=== PATIENT | female | born 1945 | race Caucasian/White ===

== ENCOUNTER 2018-03-07 08:32 | Emergency (ER) | payer MEDICARE ==
[2018-03-07] MEDS ORDERED: Ondansetron ODT 8 MG TAB ONE (08:46)
--- NOTE | 2018-03-07 09:35 | CT ---
CT HEAD NONCONTRAST: HISTORY: Fall. Head injury. COMPARISON: 04/06/07. FINDINGS: There is no evidence of acute intracranial hemorrhage or infarct. Ventricles appear normal in size, shape, and position. There is no mass effect or shift of midline structures. Mild chronic ischemic small-vessel disease within the periventricular white matter has progressed. IMPRESSION: No acute intracranial abnormalities are demonstrated. POS: [facility]
== END 2018-03-07 09:56 | disposition home or self-care (01) ==
LOC: ERS 08:32
DX: S09.90XA Unspecified injury of head, initial encounter (principal); F07.81 Postconcussional syndrome; E03.9 Hypothyroidism, unspecified; E78.5 Hyperlipidemia, unspecified; I10 Essential (primary) hypertension; W18.30XA Fall on same level, unspecified, initial encounter
CPT/HCPCS: 70450

== ENCOUNTER 2018-09-19 15:17 | Emergency (ER) | payer MEDICARE ==
[2018-09-19] MEDS ORDERED: Ketorolac Tromethamine 30 MG/ML VIAL ONE (16:06)
--- NOTE | 2018-09-19 16:37 | RAD ---
AP PELVIS: 09/19/18 HISTORY: Right hip pain and pelvic pain. The bones appear demineralized. There are very mild arthritic changes of both hips. There is marked a rthritic changes in the lower lumbar spine. There is no signs of any fractures. IMPRESSION: Mild arthritic changes of the hips. POS: [facility]
--- NOTE | 2018-09-19 16:38 | RAD ---
RIGHT HIP TWO VIEWS: 09/19/18 HISTORY: Hip pain. There is minimal arthritic changes of the hip. The bones appear demineralized. There is no signs of a ny acute fracture. IMPRESSION: Minimal arthritic changes of the hip. POS: [facility]
== END 2018-09-19 16:55 | disposition home or self-care (01) ==
LOC: ERS 15:17
DX: M54.31 Sciatica, right side (principal); E03.9 Hypothyroidism, unspecified; E78.2 Mixed hyperlipidemia; I10 Essential (primary) hypertension; Z79.899 Other long term (current) drug therapy; Z79.82 Long term (current) use of aspirin
CPT/HCPCS: 72170; 96374; J1885

== ENCOUNTER 2018-10-27 13:43 | Outpatient (CLI) | payer MEDICARE ==
--- NOTE | 2018-10-27 16:26 | BD ---
Exam: DEXA Bone Density 10/27/18 HISTORY: 73-year-old female with age related osteoporosis with current pathologic fracture, unspecified site. Patient is postmenopausal. FINDINGS: Lumbar Spine: BMD (g/cm2) T-Score: L1 0.937 -0.5 L2 1.093 +0.6 L3 0.972 -1.0 L4 1.184 1.1 L1-L4 1.054 +0.1 Within normal limits with no increased risks for fracture. Left Femoral: Femoral neck: 0.584 -2.4 Total Femur: 0.779 -1.3 Evidence for osteopenia with increased risk for fracture. FRAX score not reported because of prior hi p or vertebral fracture. POS: [facility]
== END 2018-10-27 13:44 | disposition home or self-care (01) ==
LOC: BICMAMMO 13:43
PROVIDERS: ATTEND Internal Medicine Rheumatology
DX: M80.00XS Age-related osteoporosis with current pathological fracture, unspecified site, sequela (principal); M85.859 Other specified disorders of bone density and structure, unspecified thigh
CPT/HCPCS: 77080

== ENCOUNTER 2019-06-20 10:15 | Emergency (ER) | payer MEDICARE ==
[2019-06-20] MEDS ORDERED: Lorazepam 2 MG/ML VIAL ONE (11:22)
[2019-06-20] MEDS ORDERED: Ketorolac Tromethamine 30 MG/ML VIAL ONE (11:22)
[2019-06-20] MEDS ORDERED: Fentanyl 100 MCG/2 ML VIAL ONE (11:22)
[2019-06-20] MEDS ORDERED: Dexamethasone 10 MG/ML VIAL ONE (11:25)
--- NOTE | 2019-06-20 11:32 | CT ---
EXAM: CT Lumbar Spine WO Con PROVIDED CLINICAL HISTORY: Back pain COMPARISON: MRI 03/18/2019 FINDINGS: Lumbar alignment is unchanged. Advanced multilevel lumbar disc and facet degenerative changes are red emonstrated, similar to the prior examination. Vertebral body heights are preserved. There is no evidence for fracture or other acute osseous abnormality. Multilevel central canal and foraminal narr owing demonstrate no significant interval change. Vascular calcifications are seen. Metallic densities are noted associated with the right sacral ala. The visualized extraspinal soft tissues tayo ear otherwise unremarkable. IMPRESSION: No evidence for fracture.
[2019-06-20 11:36] LABS: #Eosinphils 0.2 thou/uL (0.0-0.7); #Lymphocytes 1.3 thou/uL (1.20-3.40); #Monocytes 0.4 thou/uL (0.11-0.59); #Neutrophils 3.9 thou/uL (1.40-6.50); %Basophils 0.6 % (0.0-1.0); %Eosinophils 3.6 % (0.0-10.0); %Lymphocytes 21.5 % (21.0-51.0); %Monocytes 7.5 % (0.0-10.0); %Neutrophils 66.8 % (42.0-75.0); Hemoglobin 13.1 g/dL (12.0-16.0); Mean Corpuscular HGB CONC 33.6 g/dL (32.0-36.0); Mean Corpuscular Hemoglobin 30.7 pg (27.0-31.0); Mean Corpuscular Volume 91.4 fL (78.0-98.0); Mean Platelet Volume 10.6 fL (7.4-10.4); Platelet Count 150 thou/uL (130-400); RBC Distribution Width 12.6 % (11.5-14.5); Red Blood Cell (RBC) Count 4.26 mill/uL (4.20-5.40); White Blood Cell (WBC) Count 5.9 thou/uL (4.8-10.8)
[2019-06-20 11:55] LABS: ALT (SGPT) 16 U/L (8-55); AST (SGOT) 22 U/L (5-34); Alkaline Phosphatase 89 U/L (40-150); Anion Gap 9 mmol/L (10-20); BUN (Urea Nitrogen) 18 mg/dL (9.8-20.1); Bilirubin, Total 0.5 mg/dL (0.2-1.2); Calc. Creatinine Clearance 0 mL/min (70-130); Calcium 9.5 mg/dL (7.8-10.44); Carbon Dioxide 31 mmol/L (23-31); Chloride 103 mmol/L (98-107); Estimated GFR-MDRD 71; Globulin 2.5 g/dL (2.4-3.5); Glucose 109 mg/dL (83-110); Potassium 3.9 mmol/L (3.5-5.1); Protein, Total 6.5 g/dL (6.0-8.3); Sodium 139 mmol/L (136-145)
== END 2019-06-20 12:50 | disposition home or self-care (01) ==
LOC: ERS 10:15
DX: M54.41 Lumbago with sciatica, right side (principal); E03.9 Hypothyroidism, unspecified; E78.5 Hyperlipidemia, unspecified; I10 Essential (primary) hypertension; Z79.899 Other long term (current) drug therapy
CPT/HCPCS: 36415; 72131; 80053; 85025; 85652; 86140; 96361; 96374; 96375; J1100; J1885; J2060; J3010

== ENCOUNTER 2019-07-01 06:42 | Day surgery (SDC) | payer MEDICARE ==
[2019-06-30 11:50] VITALS: BMI 31.9
[2019-07-01] MEDS ORDERED: Morphine 4 MG/ML VIAL ONE (08:42)
[2019-07-01 09:04] LABS: #Basophils 0.1 thou/uL (0.0-0.2); #Eosinphils 0.2 thou/uL (0.0-0.7); #Lymphocytes 1.6 thou/uL (1.20-3.40); #Monocytes 0.6 thou/uL (0.11-0.59); #Neutrophils 6.2 thou/uL (1.40-6.50); %Basophils 0.8 % (0.0-1.0); %Eosinophils 2.7 % (0.0-10.0); %Lymphocytes 18.5 % (21.0-51.0); %Monocytes 6.9 % (0.0-10.0); %Neutrophils 71.1 % (42.0-75.0); Hemoglobin 14.5 g/dL (12.0-16.0); Mean Corpuscular HGB CONC 33.1 g/dL (32.0-36.0); Mean Corpuscular Volume 90.5 fL (78.0-98.0); Platelet Count 167 thou/uL (130-400); RBC Distribution Width 12.5 % (11.5-14.5); Red Blood Cell (RBC) Count 4.82 mill/uL (4.20-5.40); White Blood Cell (WBC) Count 8.7 thou/uL (4.8-10.8)
[2019-07-01 09:07] LABS: INR-International Normal Ratio 1.2; Prothrombin Time 14.8 SEC (12.0-14.7)
[2019-07-01] MEDS ORDERED: Thrombin 5000 UNITS/5 ML VIAL ONE ×2 (09:14→13:43)
[2019-07-01] MEDS ORDERED: Sodium Chloride 0.9% 10 ML ONE (09:14)
[2019-07-01 09:20] LABS: Anion Gap 15 mmol/L (10-20); BUN (Urea Nitrogen) 18 mg/dL (9.8-20.1); Calc. Creatinine Clearance 97 mL/min (70-130); Calcium 9.6 mg/dL (7.8-10.44); Carbon Dioxide 26 mmol/L (23-31); Chloride 103 mmol/L (98-107); Estimated GFR-MDRD 71; Glucose 87 mg/dL (83-110); Potassium 4.1 mmol/L (3.5-5.1); Sodium 140 mmol/L (136-145)
[2019-07-01] MEDS ORDERED: Metoclopramide HCl 10 MG/2 ML VIAL ONE (10:18)
[2019-07-01] MEDS ORDERED: Ketorolac Tromethamine 30 MG/ML VIAL ONE (10:18)
[2019-07-01] MEDS ORDERED: Rocuronium Bromide 10 MG/ML (10ML VIAL) ONE (10:18)
[2019-07-01] MEDS ORDERED: ePHEDrine 50 MG/ML VIAL ONE (10:18)
[2019-07-01] MEDS ORDERED: PROPOFOL 200 MG/20 ML VIAL ONE (10:18)
[2019-07-01] MEDS ORDERED: Dexamethasone 20 MG/5 ML VIAL ONE (10:18)
[2019-07-01] MEDS ORDERED: Lidocaine 1% PF 5 ML VIAL ONE (10:18)
[2019-07-01] MEDS ORDERED: Ondansetron PF 4 MG/2 ML Vial ONE (10:18)
[2019-07-01] MEDS ORDERED: Fentanyl 100 MCG/2 ML VIAL ONE ×3 (10:45→15:24)
[2019-07-01] MEDS ORDERED: Famotidine/PF 20 mg/2ml Vial ONE (10:46)
[2019-07-01] MEDS ORDERED: Fleet Enema 133 ML BOT PR PRN (14:32)
[2019-07-01] MEDS ORDERED: Bisacodyl 10 MG SUPP PR PRN (14:32)
[2019-07-01] MEDS ORDERED: Ondansetron PF 4 MG/2 ML Vial IVP PRN (14:32)
[2019-07-01] MEDS ORDERED: Mag-Al 1200 mg/1200 mg/30 ML UDCUP PO PRN (14:32)
[2019-07-01] MEDS ORDERED: Acetaminophen/Codeine 30-300mg Tablet PO PRN (14:32)
[2019-07-01] MEDS ORDERED: Morphine 2 MG/ML SYRINGE SLOW IVP PRN (14:32)
[2019-07-01] MEDS ORDERED: Milk Of Magnesia 30 ML UDCUP PO PRN (14:32)
[2019-07-01] MEDS ORDERED: Acetaminophen 325 MG TAB PO PRN (14:32)
[2019-07-01] MEDS ORDERED: traMADol HCl 50 MG TAB PO PRN (14:32)
[2019-07-01] MEDS ORDERED: Ondansetron HCl/PF 4 MG/2 ML Vial IVP PRN (15:00)
--- NOTE | 2019-07-01 15:21 | OP ---
DATE OF PROCEDURE: 07/01/2019 [employer] DRAFTSPERSON: Italo Manrique PA-C PREPROCEDURE DIAGNOSES: L3 through L5 stenosis with spondylolisthesis with far lateral right L3-L4 disk extrusion. POSTPROCEDURE DIAGNOSES: L3 through L5 stenosis with spondylolisthesis with far lateral right L3-L4 disk extrusion. PROCEDURES PERFORMED: 1. L3-L4 and L4-L5 laminectomies, partial facetectomies, and foraminotomies. 2. L3-L4 in-situ fusion with local bone autograft obtained from same incision and allograft. 3. Right L3-L4 transfacet approach for diskectomy lateral far-lateral with decompression of the exiting right L3 nerve root. 4. Use of operative microscope for microdissection. DESCRIPTION OF PROCEDURE: After informed consent was obtained from the patient, she was brought to the OR. Proper patient, pause, and identification were carried out. The wound was then opened with a combination of sharp, monopolar, and blunt dissection. After proper patient, pause, and identification, in the L3 through L5 region, an incision had been drawn. This area had been sterilely cleansed, prepared, and draped. Proper patient, pause, and identification were carried out. The wound was then opened with a combination of sharp, monopolar, and blunt dissection. The L3, L4, and L5 segments were exposed. Localization film confirmed our area of interest. We then performed L3, L4, and L5 laminectomies, partial facetectomies, foraminotomies, excellent decompression of the common dural tube. We then turned our attention to in-situ fusion with decortication of posterolateral regions at L3-L4. I did the left side first and left the right side because I then brought the microscope in and did a right L3-L4 transfacet approach for a lateral far-lateral diskectomy. Complete decompression of the exiting right L3 nerve root. We then decorticated the right posterior lateral regions for arthrodesis. Local bone autograft obtained in the same incision of allograft. Copious irrigation occurred throughout as did maximizing hemostasis. The wound was then closed in anatomic layers. We had excellent decompression. There was no spinal fluid leak. The wound was then maximally hemostasis and closed in anatomic layers. Job ID: [id number]
[2019-07-01] MEDS ORDERED: Dexamethasone 6 MG in Sodium Chloride 0.9% 50 ML IVPB SCH (16:45)
[2019-07-01] MEDS ORDERED: CEFAZOLIN 2 GM in Premix Bag 1 BAG IVPB SCH (17:00)
[2019-07-01] MEDS ORDERED: Dexamethasone 4 mg/ml Vial ONE (17:06)
[2019-07-01] MEDS ORDERED: HYDROcodone/Acetaminophen 7.5/325 mg Tablet ONE (17:52)
[2019-07-01] MEDS: Sodium Chloride 0.9% 1,000 ML IV SCH (20:01)
--- NOTE | 2019-07-01 20:38 | EKG ---
Test Reason : PREOP/UP IN [facility] Blood Pressure : / mmHG Vent. Rate : 062 BPM Atrial Rate : 062 BPM P-R Int : 150 ms QRS Dur : 080 ms QT Int : 426 ms P-R-T Axes : 065 046 059 degrees QTc Int : 432 ms Normal sinus rhythm Normal ECG When compared with ECG of 08-MAR-2014 09:24, T wave amplitude has increased in Anterior leads Confirmed by TIMMY DE LA CRUZ, SDarwin ([id number]) on 07/01/2019 8:37:48 PM Referred By: GUERO Confirmed By:DR. Joanna WARNER MD
[2019-07-01] MEDS: CEFAZOLIN 2 GM in Premix Bag 1 BAG IVPB SCH (20:54)
[2019-07-01] MEDS: Simvastatin 40 MG TAB PO SCH (20:55)
[2019-07-01] MEDS: Calcium Carbonate + Vit D 1 TAB PO SCH (20:55)
[2019-07-02] MEDS: HYDROcodone/Acetaminophen 7.5/325 mg Tablet PO PRN ×4 (01:08→17:41)
[2019-07-02] MEDS: Sodium Chloride 0.9% 1,000 ML IV SCH ×2 (02:34→10:42)
[2019-07-02] MEDS: Levothyroxine Sodium 100 MCG TAB PO SCH (05:29)
[2019-07-02] MEDS: CEFAZOLIN 2 GM in Premix Bag 1 BAG IVPB SCH (05:29)
[2019-07-02] MEDS: Citalopram 20 MG TAB PO SCH (09:11)
[2019-07-02] MEDS: tiZANidine HCl 4 MG TAB PO PRN ×2 (09:12→17:41)
[2019-07-02] MEDS: Multivitamin W/ Minerals 1 TAB PO SCH (09:12)
[2019-07-02] MEDS: Hydrochlorothiazide 25 MG TAB PO SCH (09:12)
[2019-07-02] MEDS: Pantoprazole 40 MG VIAL IVP SCH (09:15)
--- NOTE | 2019-07-02 12:28 | PRG ---
DATE OF SERVICE: 07/02/2019 I saw Ms. Renee in her hospital room this morning. She underwent a L3 through L5 laminectomy with complete facetectomy and in situ fusion for significant L3 root compression. The hip flexor weakness she had before surgery is still there, might be improving some, but she is feeling as though she is unsafe for walking. No fevers recorded on her vital signs. Blood pressure and heart rate have been stable. Ms. Renee will need inpatient rehabilitation and I think a transfer could be made at any time. Ms. Renee denies being fitted for a brace and I think with an in situ fusion, it is reasonable idea. We will order one and have that follow her to her rehabilitation facility. Job ID: [id number]
[2019-07-02] MEDS: Calcium Carbonate + Vit D 1 TAB PO SCH (19:29)
[2019-07-02] MEDS: Simvastatin 40 MG TAB PO SCH (19:29)
[2019-07-03] MEDS: Sodium Chloride 0.9% 1,000 ML IV SCH ×2 (06:10→19:38)
[2019-07-03] MEDS: Levothyroxine Sodium 100 MCG TAB PO SCH (06:11)
[2019-07-03] MEDS: HYDROcodone/Acetaminophen 7.5/325 mg Tablet PO PRN ×2 (06:22→16:06)
--- NOTE | 2019-07-03 08:36 | PRG ---
DATE OF SERVICE: 07/03/2019 I saw Aliya Renee in our hospital room this morning. She complains that the anterior side pain came back yesterday. She is now 2-1/2 days out from surgery and from the descriptions of the compressed and purple-red, irritated L3 nerve root on the right side I am not surprised that pain has returned. Ms. Renee has been afebrile. Her blood pressures have been a bit low in the 90s, but she has been asymptomatic from it. I do not find any new motor weakness. I reassured Ms. Renee that 2 to 3 days after decompression of a severely compressed and injured nerve there can be some swelling and return of pain in similar distribution, but it should prove temporary. If we need to start gabapentin, Lyrica or course of steroid medication we can. For now, we will treat her conservatively. She likes the support that the brace offers and I think it is a good idea to continue it. Anticipated inpatient rehabilitation as to discharge. If there is a bed today we will take it if not then on Friday. Job ID: [id number]
[2019-07-03] MEDS: Citalopram 20 MG TAB PO SCH (09:09)
[2019-07-03] MEDS: Multivitamin W/ Minerals 1 TAB PO SCH (09:09)
[2019-07-03] MEDS: Hydrochlorothiazide 25 MG TAB PO SCH (09:09)
[2019-07-03] MEDS: Pantoprazole 40 MG VIAL IVP SCH (09:10)
[2019-07-03] MEDS: Simvastatin 40 MG TAB PO SCH (19:40)
[2019-07-03] MEDS: Calcium Carbonate + Vit D 1 TAB PO SCH (19:40)
[2019-07-03] MEDS: Pregabalin 75 MG CAP PO SCH (19:40)
[2019-07-04] MEDS: Levothyroxine Sodium 100 MCG TAB PO SCH (04:10)
[2019-07-04] MEDS: Citalopram 20 MG TAB PO SCH (08:58)
[2019-07-04] MEDS: HYDROcodone/Acetaminophen 7.5/325 mg Tablet PO PRN ×2 (08:58→13:16)
[2019-07-04] MEDS: Multivitamin W/ Minerals 1 TAB PO SCH (08:59)
[2019-07-04] MEDS: Hydrochlorothiazide 25 MG TAB PO SCH (08:59)
[2019-07-04] MEDS: Pregabalin 75 MG CAP PO SCH (08:59)
[2019-07-04] MEDS: Pantoprazole 40 MG VIAL IVP SCH (08:59)
[2019-07-04] MEDS ORDERED: Polyethylene Glycol 3350 17 GM Packet PO SCH (09:00)
--- NOTE | 2019-07-04 09:08 | PRG ---
DATE OF SERVICE: 07/04/2019 I saw Ms. Renee in her hospital room this morning. She had some burning thigh pain yesterday and Lyrica was started. She tells me she feels a bit better this morning. I do not see any fevers recorded on our electronic charting. Vital signs have been stable. On examination, Ms. Renee has hip flexor weakness on the right and some numbness in what would be an L3 distribution. It has improved. Plan is to move Ms. Renee to inpatient rehabilitation. Transfer was set up for yesterday, but she wanted to delay it one evening and we have been told that she will move today. Arrangements will be made for that, and Dr. Hargrove will follow her up in clinic. Job ID: [id number]
[2019-07-04] MEDS: Sodium Chloride 0.9% 1,000 ML IV SCH (10:03)
[2019-07-04 12:03] VITALS: BP 138/75; TEMP 98.3
== END 2019-07-04 13:56 ==
LOC: SDC 06:42 → UNDOADMOB 18:44 → SURG B 18:44 → SDC 07-04 13:56 → UNDODISOB 07-04 13:56
PROVIDERS: ATTEND Surgery
PROC: 0SG0071 Fusion of Lumbar Vertebral Joint with Autologous Tissue Substitute, Posterior Approach, Posterior Column, Open Approach (ICD-10-PCS; principal; 2019-07-01)
PROC: 0ST20ZZ Resection of Lumbar Vertebral Disc, Open Approach (ICD-10-PCS; 2019-07-01)
PROC: 01NB0ZZ Release Lumbar Nerve, Open Approach (ICD-10-PCS; 2019-07-01)
PROC: 0SG0071 Fusion of Lumbar Vertebral Joint with Autologous Tissue Substitute, Posterior Approach, Posterior Column, Open Approach (ICD-10-PCS; 2019-07-01)
PROC: 01NB0ZZ Release Lumbar Nerve, Open Approach (ICD-10-PCS; 2019-07-01)
DX: M48.061 Spinal stenosis, lumbar region without neurogenic claudication (principal); M43.16 Spondylolisthesis, lumbar region; M54.16 Radiculopathy, lumbar region; I10 Essential (primary) hypertension; E03.9 Hypothyroidism, unspecified; E78.00 Pure hypercholesterolemia, unspecified; E78.5 Hyperlipidemia, unspecified; F32.9 Major depressive disorder, single episode, unspecified; M19.90 Unspecified osteoarthritis, unspecified site; Z79.82 Long term (current) use of aspirin; Z79.899 Other long term (current) drug therapy; Z87.891 Personal history of nicotine dependence
CPT/HCPCS: 36415; 76000; 80048; 85025; 85610; 85730; 93005; 93010; C9113; J0131; J0690; J1100; J1885; J2001; J2270; J2405; J2704; J2765; J3010; J3370; J3490; S0028

== ENCOUNTER 2022-04-24 12:41 | Outpatient (CLI) | payer MEDICARE, BC | END 2022-04-24 12:42 | disposition home or self-care (01) | LOC: BICMAMMO 12:41 | PROVIDERS: ATTEND Surgery | DX: M43.16 Spondylolisthesis, lumbar region (principal); M47.816 Spondylosis without myelopathy or radiculopathy, lumbar region; M47.817 Spondylosis without myelopathy or radiculopathy, lumbosacral region; Z98.890 Other specified postprocedural states; Z78.0 Asymptomatic menopausal state | CPT/HCPCS: 72131; 77080 ==

== ENCOUNTER 2022-06-20 06:03 | Inpatient (IN) | payer MEDICARE, BC ==
[2022-06-17 09:56] LABS: Hemoglobin 12.5 g/dL (12.0-15.5); Mean Corpuscular HGB CONC 33.3 g/dL (32.0-36.0); Mean Corpuscular Hemoglobin 30.6 pg (27.0-33.0); Mean Corpuscular Volume 91.7 fl (81.6-98.3); Mean Platelet Volume 13.1 fl (7.4-10.4); Platelet Count 133 10x3/uL (150-450); Red Blood Cell (RBC) Count 4.09 10x6/uL (3.90-5.03); White Blood Cell (WBC) Count 5.6 10x3/uL (3.5-10.5)
[2022-06-17 10:09] LABS: Anion Gap 16 mmol/L (10-20); BUN (Urea Nitrogen) 18 mg/dL (9.8-20.1); Calc. Creatinine Clearance 0 mL/min (70-130); Calcium 9.6 mg/dL (7.8-10.44); Carbon Dioxide 24 mmol/L (23-31); Chloride 104 mmol/L (98-107); Estimated GFR 69; Glucose 120 mg/dL (83-110); Potassium 4.1 mmol/L (3.5-5.1); Sodium 140 mmol/L (136-145)
[2022-06-17 10:43] LABS: INR-International Normal Ratio 1.1; Prothrombin Time 12.1 sec (9.5-12.1)
[2022-06-19 14:52] VITALS: BMI 29.6
[2022-06-20] MEDS ORDERED: Vecuronium 10 MG VIAL ONE (07:06)
[2022-06-20] MEDS ORDERED: fentaNYL Citrate/PF 100 MCG/2 ML SYRINGE ONE ×2 (07:06→12:18)
[2022-06-20] MEDS ORDERED: Albumin 5% 0 ML ONE (07:06)
[2022-06-20] MEDS ORDERED: Dexmedetomidine 200 MCG/2 ML VIAL ONE (07:06)
[2022-06-20] MEDS ORDERED: Sodium Chloride 0.9% 100 ML ONE (07:18)
[2022-06-20] MEDS ORDERED: CEFAZOLIN 2 GM VIAL ONE (07:18)
[2022-06-20] MEDS ORDERED: Ondansetron PF 4 MG/2 ML Vial ONE (07:32)
[2022-06-20] MEDS ORDERED: NEOSTIGMINE 3 MG/3 ML SYR 3 MG/3 ML SYRINGE ONE (07:32)
[2022-06-20] MEDS ORDERED: ePHEDrine 50 MG/ML VIAL ONE (07:32)
[2022-06-20] MEDS ORDERED: Lidocaine 1% MPF 2 ML VIAL ONE (07:32)
[2022-06-20] MEDS ORDERED: Dexamethasone 20 MG/5 ML VIAL ONE (07:32)
[2022-06-20] MEDS ORDERED: Phenylephrine 10 MG/ML VIAL ONE (07:32)
[2022-06-20] MEDS ORDERED: Rocuronium Bromide 10 MG/ML (10ML VIAL) ONE (07:32)
[2022-06-20] MEDS ORDERED: Ketorolac Tromethamine 30 MG/ML VIAL ONE (07:32)
[2022-06-20] MEDS ORDERED: PROPOFOL 200 MG/20 ML VIAL ONE (07:32)
[2022-06-20] MEDS ORDERED: Glycopyrrolate 0.2 MG/ML 5 ML SYRINGE ONE (07:32)
[2022-06-20] MEDS ORDERED: Thrombin 5000 UNITS/5 ML VIAL ONE ×2 (08:26→11:08)
[2022-06-20] MEDS ORDERED: Promethazine HCl 25 MG/ML VIAL IM PRN ×2 (11:59→13:00)
[2022-06-20] MEDS ORDERED: Promethazine HCl 25 MG/ML VIAL IVPB PRN (11:59)
[2022-06-20] MEDS ORDERED: Ondansetron HCl/PF 4 MG/2 ML Vial IVP PRN (11:59)
[2022-06-20] MEDS ORDERED: PACU-Morphine 4MG/ML VIAL SLOW IVP PRN (11:59)
[2022-06-20] MEDS ORDERED: HYDROmorphone 2 MG/ML VIAL SLOW IVP PRN (11:59)
[2022-06-20] MEDS ORDERED: Morphine Sulfate 2 MG/ML SYRINGE SLOW IVP PRN (11:59)
[2022-06-20] MEDS ORDERED: Acetaminophen 325 MG TAB PO PRN (12:28)
[2022-06-20] MEDS ORDERED: diphenhydrAMINE 25 MG CAP PO PRN ×2 (12:28→13:00)
[2022-06-20] MEDS ORDERED: Diazepam 5 MG TAB PO PRN (12:31)
[2022-06-20] MEDS ORDERED: Promethazine HCl 12.5 MG in Sodium Chloride 0.9% 50 ML IVPB PRN (12:31)
[2022-06-20] MEDS ORDERED: Polyethylene Glycol 3350 17 GM Packet PO PRN (12:31)
[2022-06-20] MEDS ORDERED: Non-Formulary Item 1 EACH (Polyethylene Glycol 3350 [Miralax] 17 GM Powd.Pack) PO PRN (12:35)
[2022-06-20] MEDS ORDERED: hydrALAZINE 20 MG/ML VIAL SLOW IVP PRN (12:37)
[2022-06-20] MEDS ORDERED: Naloxone HCl 0.4 mg/ml Vial IV PRN (13:00)
[2022-06-20] MEDS ORDERED: Sodium Chloride 0.9% 100 ML BAG ONE (13:00)
[2022-06-20] MEDS ORDERED: diphenhydrAMINE 50 MG/ML VIAL IM/IV PRN (13:00)
[2022-06-20] MEDS ORDERED: Ondansetron PF 4 MG/2 ML Vial IVP PRN (13:00)
[2022-06-20] MEDS ORDERED: Zolpidem Tartrate 5 MG TAB PO PRN (13:00)
[2022-06-20] MEDS ORDERED: HYDROMORPHONE 10 MG/ML ONE (13:00)
[2022-06-20] MEDS ORDERED: HYDROmorphone/PF 10 MG in Sodium Chloride 0.9% 99 ML IVPB PRN (13:00)
[2022-06-20] MEDS ORDERED: Fentanyl 100 MCG/2 ML VIAL ONE (13:10)
[2022-06-20] MEDS ORDERED: CEFAZOLIN 2 GM in Sodium Chloride 0.9% 100 ML IVPB SCH (16:00)
[2022-06-20] MEDS: CEFAZOLIN 2 GM in Sodium Chloride 0.9% 100 ML IVPB SCH (20:51)
[2022-06-20] MEDS: Docusate 100 MG CAP PO SCH (20:52)
[2022-06-20] MEDS: Atorvastatin Calcium 20 MG TAB PO SCH (20:52)
[2022-06-20] MEDS: Acetaminophen 500 MG TAB PO SCH ×2 (20:52→23:18)
[2022-06-20] MEDS: Sodium Chloride 0.9% 1,000 ML IV SCH (20:53)
[2022-06-21] MEDS: Sodium Chloride 0.9% 1,000 ML IV SCH ×2 (02:52→19:02)
[2022-06-21 05:09] LABS: #Lymphocytes 1.1 thou/uL (1.20-3.40); #Monocytes 0.7 thou/uL (0.11-0.59); #Neutrophils 7.1 thou/uL (1.40-6.50); %Basophils 0.1 % (0.0-1.0); %Eosinophils 0.3 % (0.0-10.0); %Lymphocytes 12.6 % (21.0-51.0); %Monocytes 8.1 % (0.0-10.0); Hemoglobin 9.7 g/dL (12.0-16.0); Mean Corpuscular HGB CONC 35.1 g/dL (32.0-36.0); Mean Corpuscular Hemoglobin 34.4 pg (27.0-31.0); Mean Platelet Volume 10.2 fL (7.4-10.4); Platelet Count 122 thou/uL (130-400); RBC Distribution Width 11.6 % (11.5-14.5); Red Blood Cell (RBC) Count 2.81 mill/uL (4.20-5.40)
[2022-06-21] MEDS: Levothyroxine 150 MCG TAB PO SCH (05:17)
[2022-06-21] MEDS: CEFAZOLIN 2 GM in Sodium Chloride 0.9% 100 ML IVPB SCH ×3 (05:17→14:36)
[2022-06-21] MEDS: Acetaminophen 500 MG TAB PO SCH ×3 (05:17→19:02)
[2022-06-21 05:35] LABS: Anion Gap 10 mmol/L (10-20); BUN (Urea Nitrogen) 20 mg/dL (9.8-20.1); Calc. Creatinine Clearance 84 mL/min (70-130); Calcium 8.4 mg/dL (7.8-10.44); Carbon Dioxide 26 mmol/L (23-31); Chloride 107 mmol/L (98-107); Estimated GFR 75; Glucose 111 mg/dL (83-110); Potassium 3.9 mmol/L (3.5-5.1); Sodium 139 mmol/L (136-145)
[2022-06-21] MEDS ORDERED: HYDROcodone/Acetaminophen 7.5/325 mg Tablet PO PRN ×2 (07:46)
[2022-06-21] MEDS ORDERED: Fentanyl 100 MCG/2 ML VIAL SLOW IVP PRN (07:46)
[2022-06-21] MEDS ORDERED: Acetaminophen/Codeine 30-300mg Tablet PO PRN (07:46)
[2022-06-21] MEDS: Cholecalciferol 1,000 UNITS (25 MCG) TAB PO SCH (10:24)
[2022-06-21] MEDS: Multivitamin W/ Minerals 1 TAB PO SCH (10:24)
[2022-06-21] MEDS: Calcium Carbonate 600 MG + Vit D TAB PO SCH (10:24)
[2022-06-21] MEDS: Docusate 100 MG CAP PO SCH ×2 (10:24→21:33)
[2022-06-21] MEDS: Citalopram 20 MG TAB PO SCH (10:33)
[2022-06-21] MEDS ORDERED: HYDROcodone/Acetaminophen 10/325 mg Tablet PO PRN (11:01)
[2022-06-21] MEDS: Lisinopril 20 MG TAB PO SCH (14:08)
[2022-06-21] MEDS: Hydrochlorothiazide 25 MG TAB PO SCH (14:09)
[2022-06-21] MEDS: HYDROcodone/Acetaminophen 10/325 mg Tablet PO PRN ×2 (14:36→19:01)
[2022-06-21] MEDS: Atorvastatin Calcium 20 MG TAB PO SCH (21:33)
[2022-06-21] MEDS: Ketorolac Tromethamine 30 MG/ML VIAL IVP PRN (21:34)
[2022-06-22] MEDS: Acetaminophen 500 MG TAB PO SCH ×5 (01:08→23:39)
[2022-06-22] MEDS: CEFAZOLIN 2 GM in Sodium Chloride 0.9% 100 ML IVPB SCH ×3 (05:53→19:45)
[2022-06-22] MEDS: Levothyroxine 150 MCG TAB PO SCH (05:54)
[2022-06-22] MEDS: HYDROcodone/Acetaminophen 10/325 mg Tablet PO PRN ×2 (05:55→18:05)
[2022-06-22] MEDS: Sodium Chloride 0.9% 1,000 ML IV SCH ×2 (06:34→12:48)
[2022-06-22] MEDS: Docusate 100 MG CAP PO SCH ×2 (09:38→20:47)
[2022-06-22] MEDS: Lisinopril 20 MG TAB PO SCH (09:39)
[2022-06-22] MEDS: Citalopram 20 MG TAB PO SCH (09:39)
[2022-06-22] MEDS: Calcium Carbonate 600 MG + Vit D TAB PO SCH (09:39)
[2022-06-22] MEDS: Multivitamin W/ Minerals 1 TAB PO SCH (09:39)
[2022-06-22] MEDS: Cholecalciferol 1,000 UNITS (25 MCG) TAB PO SCH (09:40)
[2022-06-22] MEDS: Hydrochlorothiazide 25 MG TAB PO SCH (09:40)
[2022-06-22] MEDS: Ketorolac Tromethamine 30 MG/ML VIAL IVP PRN (09:54)
[2022-06-22] MEDS: Atorvastatin Calcium 20 MG TAB PO SCH (20:47)
[2022-06-23] MEDS: Acetaminophen 500 MG TAB PO SCH ×4 (05:37→23:06)
[2022-06-23] MEDS: Levothyroxine 150 MCG TAB PO SCH (05:37)
[2022-06-23] MEDS: Sodium Chloride 0.9% 1,000 ML IV SCH ×2 (05:41→21:55)
[2022-06-23] MEDS: Cholecalciferol 1,000 UNITS (25 MCG) TAB PO SCH (09:02)
[2022-06-23] MEDS: Calcium Carbonate 600 MG + Vit D TAB PO SCH (09:03)
[2022-06-23] MEDS: Docusate 100 MG CAP PO SCH ×2 (09:03→20:34)
[2022-06-23] MEDS: Citalopram 20 MG TAB PO SCH (09:03)
[2022-06-23] MEDS: Multivitamin W/ Minerals 1 TAB PO SCH (09:03)
[2022-06-23] MEDS: HYDROcodone/Acetaminophen 10/325 mg Tablet PO PRN (09:04)
[2022-06-23] MEDS: Lisinopril 20 MG TAB PO SCH (09:05)
[2022-06-23] MEDS: Hydrochlorothiazide 25 MG TAB PO SCH (09:06)
[2022-06-23] MEDS: Atorvastatin Calcium 20 MG TAB PO SCH (19:55)
[2022-06-23] MEDS: Ketorolac Tromethamine 30 MG/ML VIAL IVP PRN (21:00)
[2022-06-24] MEDS: Acetaminophen 500 MG TAB PO SCH ×2 (06:13→12:54)
[2022-06-24] MEDS: Levothyroxine 150 MCG TAB PO SCH (06:14)
[2022-06-24] MEDS: Ketorolac Tromethamine 30 MG/ML VIAL IVP PRN (06:14)
[2022-06-24] MEDS: Citalopram 20 MG TAB PO SCH (08:08)
[2022-06-24] MEDS: Cholecalciferol 1,000 UNITS (25 MCG) TAB PO SCH (08:09)
[2022-06-24] MEDS: Multivitamin W/ Minerals 1 TAB PO SCH (08:09)
[2022-06-24] MEDS: Calcium Carbonate 600 MG + Vit D TAB PO SCH (08:10)
[2022-06-24] MEDS: Docusate 100 MG CAP PO SCH (08:10)
[2022-06-24] MEDS: Hydrochlorothiazide 25 MG TAB PO SCH (08:12)
[2022-06-24] MEDS: Lisinopril 20 MG TAB PO SCH (08:12)
[2022-06-24] MEDS: Sodium Chloride 0.9% 1,000 ML IV SCH (08:13)
[2022-06-24] MEDS: HYDROcodone/Acetaminophen 10/325 mg Tablet PO PRN (09:43)
[2022-06-24] MEDS ORDERED: tiZANidine HCl 4 MG TAB PO PRN (11:44)
[2022-06-24 12:04] VITALS: BP 107/63; TEMP 98
== END 2022-06-24 14:00 | DRG 455 ==
LOC: SDC 06:03 → SURG A 12:37 → OBSVTOIN 06-21 07:55
PROVIDERS: ADMIT Surgery; ATTEND Surgery
PROC: 0SG00AJ Fusion of Lumbar Vertebral Joint with Interbody Fusion Device, Posterior Approach, Anterior Column, Open Approach (ICD-10-PCS; principal; 2022-06-20)
PROC: 0SG0071 Fusion of Lumbar Vertebral Joint with Autologous Tissue Substitute, Posterior Approach, Posterior Column, Open Approach (ICD-10-PCS; 2022-06-20)
PROC: 01NB0ZZ Release Lumbar Nerve, Open Approach (ICD-10-PCS; 2022-06-20)
PROC: 30233N1 Transfusion of Nonautologous Red Blood Cells into Peripheral Vein, Percutaneous Approach (ICD-10-PCS; 2022-06-21)
DX: M43.16 Spondylolisthesis, lumbar region (principal); M48.062 Spinal stenosis, lumbar region with neurogenic claudication; Z20.822 Contact with and (suspected) exposure to COVID-19
CPT/HCPCS: 36415; 36430; 76000; 80048; 85025; 85027; 85610; 85730; 86850; 86900; 86901; 87811; 93970; 96365; 96366; C1713; C1768; C1776; G0378; J0690; J1100; J1170; J1885; J2370; J2405; J2704; J3010; J3370; J3490; J7050; P9016; P9045